=== PATIENT | female | born 1945 | race Caucasian/White ===

== ENCOUNTER 2024-09-29 07:59 | Day surgery (SDC) | payer MEDICARE, SELFPAY ==
[2024-09-21 08:45] VITALS: BMI 29.8
--- NOTE | 2024-09-29 07:16 | P.HP_ITS ---
History of Present Illness *Admission Date: 09/29/24 *History of present illness: Mrs. Meneses is a 79-year-old female who is here for follow-up screening/surveillance colonoscopy secondary to a personal history of colon polyps. Her last colonoscopy was with me 7 to 10 years ago. The examination is deemed medically necessary for screening/surveillance colonoscopy. The patient has been seen, interviewed and examined prior to the procedure by both myself and the anesthesia provider. [facility] Disclaimer: The information contained in this section may have been updated after the patient was seen, as this information can be updated by other users. Medical History (Updated 09/29/24 @ 09:44 by Mark Muniz II, MD) FH: total knee replacement No significant past medical history Family History Other No significant family history Social History (Updated 09/29/24 @ 09:06 by Armando Cabezas CRNA) Smoking Status: Never smoker alcohol intake: current substance use type: denies use current occupational status: unemployed Travel in the last 8 weeks?: None Have you lived/traveled outside [place] in past 30 days?: No Contact w/someone who lives/traveled outside [place] past 30 days?: No Exposure to someone with infectious disease in past 14 days?: No Do you have a fever (greater than 100.4 F or 38 C)?: No Have you tested positive for COVID-19?: No Exposed to someone with COVID-19 in past 14 days?: No Do you have a sore throat?: No Do you have a cough?: No Do you have any weakness?: No Do you have any diarrhea?: No Are you experiencing any unusual bleeding?: No Do you have any muscle aches/pain?: No Do you have any abdominal pain?: No Are you experiencing loss of taste or smell?: No Review of Systems Review of Systems Review of systems (narrative): Negative *Cardiovascular Comments: Negative *Gastrointestinal Comments: Negative *Genitourinary Comments: Negative *Musculoskeletal Comments: Negative *Neurologic Comments: Negative Meds Home Medications and Allergies New Prescriptions to Start Prescriptions: Allergies Allergy/AdvReac Type Severity Reaction Status Date / Time No Known Allergies Allergy Verified 09/29/24 08:28 Exam *Routine HEENT Exam Head: Present normocephalic Eye: Present EOMI and PERRL ENT: Present mucous membranes moist *Routine Neck Exam Neck: Present supple *Routine Respiratory Exam Respiratory: Present CTA bilaterally *Routine Cardiovascular Exam Cardiovascular: Present RRR *Routine Abdominal Exam Abdominal: Present soft and normoactive bowel sounds; Absent tenderness *Routine Rectal Exam Rectal:: deferred *Routine Genitalia Exam Genitalia:: deferred *Routine Extremities Exam Extremities: Absent cyanosis, clubbing or edema *Routine Skin Exam Skin: Present warm; Absent rash *Routine Neurological Exam Neurological: Present alert and oriented X3 Assessment and Plan *Assessment and plan (1) Personal history of colon polyps, unspecified: Status: Acute Category: Medical Code(s): Z86.0100 - Personal history of colon polyps, unspecified (2) Screening for colon cancer: Status: Acute Category: Medical Code(s): Z12.11 - Encounter for screening for malignant neoplasm of colon Plan A/P: 1. Personal history of colon polyps is the preprocedural diagnosis. The patient's last colonoscopy was with mi 7 to 10 years ago and report and pathology not presently available. The patient is overdue for repeat surveillance. The patient will be anesthetized/sedated using MAC sedation. The patient has been seen and examined. Cardiac and lung assessment prior to the examination is stable. Proceed with planned screening/surveillance colonoscopy.
[2024-09-29 08:29] VITALS: BP 162/93; PULSE 82; RESP 17; TEMP -8.3; TEMP 17; O2SAT 96
[2024-09-29] MEDS: LACTATED RINGERS 1000ML 1,000 ML 75 ML IV (08:47)
--- NOTE | 2024-09-29 09:04 | EXP.ANES.CKL ---
[facility] Disclaimer: The information contained in this section may have been updated after the patient was seen, as this information can be updated by other users. Medical History FH: total knee replacement No significant past medical history Family History Other No significant family history Social History Smoking Status: Never smoker alcohol intake: current substance use type: denies use current occupational status: unemployed Travel in the last 8 weeks?: None [facility] Anesthesia Checklist Patient Identification Patient Identification: Arm Band and Family Structural Data Admitted From: Home Planned Operative Procedure/s: Colonoscopy Consent for Planned Operative Procedure(s) Verified: Yes Verified Documents: Surgical Consent and History and Physical NPO Status Verified Time NPO: 00:00 Additional verifications Patient : No Anesthesia Reactions: No Hx Blood Transfusions: No Blood Transfusion Reaction: No Cephalosporin Allergy: No Previous Colonoscopy: Yes Airway Assessment Mallampati Score:: Class II C-Spine Mobility Assessed: Yes TMJ Mobility Assessed: Yes Dentition: Good Dentition Neurological Assessment Level of Consciousness: Awake, Alert, Appropriate and Follows Commands Hx Seizures: No Numbness or tingling in extremities: No Anesthesia Plan Anesthesia Risk discussed: Yes ASA Class: I Anesthesia Type: MAC
--- NOTE | 2024-09-29 09:44 | HMH.PROCNOTE ---
[facility] Procedure Note Date: 09/29/24 Time: 10:04 Procedure Note:: Colonoscopy Procedure Report: Colonoscopy with cold snare polypectomy Endoscopist: Mark Muniz II, MD Referring physician: Kelle Howard DO Date of Procedure: September 29, 2024 Equipment: Olympus [id number] adult colonoscope Sedation: MAC sedation Indication: Mrs. Meneses is a 79-year-old female who is here for screening/surveillance colonoscopy. It does appear that her last colonoscopy was in June 2005 and was normal. The patient reports no abdominal pain, weight loss, change in her bowel habits or rectal bleeding. She reports no family history of colon cancer. The patient does have symptomatic gallstones. Procedure: Prior to the procedure, a history and physical exam was performed, and patient's medications and allergies were reviewed. The risks, benefits and alternatives of the sedation and procedure were discussed with the patient. All questions were answered and informed consent was obtained. The patient was brought to the procedure room. Patient identification and proposed procedure were verified by the physician and the nurse. The patient was placed in a left lateral decubitus position and the scope was passed under direct vision. Throughout the procedure, the patient's blood pressure, pulse, and oxygen saturations were monitored continuously. The colonoscopy was accomplished without difficulty. The patient tolerated the procedure well. Findings: On digital rectal examination there was normal rectal tone. There were no external hemorrhoids. The colonoscope was introduced through the anal canal to the rectum and advanced to the cecum. The ileocecal valve and appendiceal orifice were identified. The scope was advanced a short distance into the ileum which appeared grossly normal. The scope was then withdrawn into the colon. There were 6 colon polyps (cecum x 1 (4 mm), ascending x 2 (3 and 5 mm), sigmoid x 1 (3 mm) and rectal x 2 (3 and 3 mm)). These were all removed via cold snare polypectomy. The remaining cecum, ascending and transverse colon and mucosa were grossly normal. There were scattered diverticuli throughout the descending and sigmoid colon (LEFT colon). The rectum itself was normal. Upon retroflexion within the rectum there were grade 1-2 internal hemorrhoids. The preparation was good throughout with [place] Preparation Score of 8 out of 9. The cecal time was 15 minutes. Impression: 1. Diminutive colonic polyps x 6 2. Left-sided diverticulosis 3. Grade 1?2 internal hemorrhoids Plan: I will follow-up the polyp histology. I am not convinced that she will require any further preventive/screening colonoscopy based upon her age. I would encourage psyllium bulking fiber supplementation on a long-term daily maintenance basis. The patient does have mildly symptomatic gallstones. I would recommend that she follow-up with general surgery. Most individuals with gallstones are asymptomatic throughout their life and are referred to as having incidental gallstones. Uncomplicated gallstone disease is present if the gallstones cause symptoms (eg, gallbladder colic). Patients with gallstones, particularly those with uncomplicated gallstone disease, are at risk of developing complications such as acute cholecystitis (infection of the gallbladder), cholangitis (infection/inflammation of the bile duct), or gallstone pancreatitis (significant inflammation of the pancreas). Once a person develops gallbladder symptoms, the symptoms are likely to recur and the patient is at increased risk for the development of complications.
[2024-09-29 10:05] VITALS: BP 92/49; PULSE 79; RESP 16; TEMP 36.2; O2SAT 90
[2024-09-29 10:15] VITALS: BP 104/55; PULSE 79; RESP 16; TEMP 36.2; O2SAT 90
[2024-09-29 10:25] VITALS: BP 116/63; PULSE 78; O2SAT 94
[2024-09-29 10:35] VITALS: BP 111/79; PULSE 74; RESP 18; O2SAT 93
== END 2024-09-29 10:35 | disposition home or self-care (01) ==
PROVIDERS: PCP Family Medicine; Visit Provider Internal Medicine Gastroenterology
PROC: 0DJD8ZZ Inspection of Lower Intestinal Tract, Via Natural or Artificial Opening Endoscopic (ICD-10-PCS; CPT 45378; principal; 2024-09-29 09:30)
DX: Z12.11 Encounter for screening for malignant neoplasm of colon (principal); D12.0 Benign neoplasm of cecum; D12.2 Benign neoplasm of ascending colon; D12.8 Benign neoplasm of rectum; K57.30 Diverticulosis of large intestine without perforation or abscess without bleeding; K64.0 First degree hemorrhoids; K64.1 Second degree hemorrhoids; Z86.0100 Personal history of colon polyps, unspecified; Z79.899 Other long term (current) drug therapy
CPT/HCPCS: 45385; J2003; J2704; J7120